=== PATIENT | female | born 1995 | race Hispanic/Latino ===

== ENCOUNTER 2017-03-25 07:10 | Emergency (ER) | payer SELFPAY ==
[2017-03-25 07:27] VITALS: BP 112/64; PULSE 83; RESP 16; TEMP 97.7; O2SAT 100
--- NOTE | 2017-03-25 07:33 | ED PDOC ---
Arrival/HPI - General Time Seen by Provider: 03/25/17 07:13 Historian: Patient, EMS - History of Present Illness Narrative History of Present Illness (Text): 03/25/17 07:21 Alina Guy is a 22 year old female, with no relevant past medical history, who was brought in by EMS after finding her inside a car stationed between the road and sidewalk. Patient reports that during the night she was out with her boyfriend and friend, she then drove home and remembers driving back to her boyfriends house to drop of keys when she suddenly felt exhaustion and began dozing off. Patient notes she was then shocked when EMS found her stationed illegally and does not recall how she got there. She reports not drinking or using drugs before driving. Patient also denies chest pain, shortness of breath , headache, nausea, vomiting, diarrhea, fever, chills, cough, visual changes, tongue biting, head injury, or other complaints PMD: Dr. Aureliano Campos Time/Duration: Prior to Arrival Symptom Onset: Sudden Symptom Course: Unchanged Activities at Onset: Light Modifying Factors (Text): None Context: Materials Handling Coordinator Associated Symptoms (Text): None Past Medical History - Provider Review Nursing Documentation Reviewed: Yes Family/Social History - Physician Review Nursing Documentation Reviewed: Yes Family/Social History: Unknown Family HX Allergies/Home Meds Allergies/Adverse Reactions: Allergies No Known Allergies Allergy (Verified 03/25/17 07:28) Home Medications: Home Meds Medication Instructions Recorded Confirmed No Known Home Med 03/25/17 03/25/17 Review of Systems - Review of Systems Constitutional: Fatigue. absent: Fevers Eyes: absent: Vision Changes ENT: Normal Respiratory: absent: SOB Cardiovascular: absent: Chest Pain Gastrointestinal: absent: Abdominal Pain, Diarrhea, Nausea, Vomiting Genitourinary Female: Normal Musculoskeletal: absent: Back Pain, Neck Pain Skin: Normal Neurological: absent: Headache, Dizziness Endocrine: Normal Hemo/Lymphatic: Normal Psychiatric: Normal Physical Exam Vital Signs Reviewed: Yes Vital Signs Temp Pulse Resp BP Pulse Ox 03/25/17 07:24 97.7 F 83 16 112/64 100 Temperature: Afebrile Blood Pressure: Normal Pulse: Regular Respiratory Rate: Normal Appearance: Positive for: Well-Appearing, Non-Toxic, Comfortable Pain Distress: None Mental Status: Positive for: Alert and Oriented X 3 - Systems Exam Head: Present: Atraumatic, Normocephalic Pupils: Present: PERRL Extroacular Muscles: Present: EOMI Conjunctiva: Present: Normal Mouth: Present: Moist Mucous Membranes Neck: Present: Normal Range of Motion Respiratory/Chest: Present: Clear to Auscultation, Good Air Exchange. No: Respiratory Distress, Accessory Muscle Use Cardiovascular: Present: Regular Rate and Rhythm, Normal S1, S2. No: Murmurs Abdomen: Present: Normal Bowel Sounds. No: Tenderness, Distention, Peritoneal Signs Upper Extremity: Present: Normal Inspection. No: Cyanosis, Edema Lower Extremity: Present: Normal Inspection. No: Edema Neurological: Present: GCS=15, CN II-XII Intact, Speech Normal Skin: Present: Warm, Dry, Normal Color. No: Rashes Psychiatric: Present: Alert, Oriented x 3, Normal Insight, Normal Concentration Medical Decision Making ED Course and Treatment: 03/25/17 07:21 Impression: 22 year old female with exhaustion found in car by EMS. Differential Diagnosis included but are not limited to: Tiredness Plan: -- EKG -- Reassess and disposition Progress Notes: EKG: Ordered, reviewed, and independently interpreted the EKG. Rate : 73 BPM Rhythm : NSR Interpretation : No ST-segment elevations or depressions, no T-wave inversions, normal intervals. Comparison : No previous EKG for comparison. Prior to discharge family arrived. Patient feels comfortable going home with parents with PMD f/u - EKG Interpretation Interpreted by ED Physician: Yes Type: 12 lead EKG - PA / STEEL FABRICATOR / Resident Statement MD/DO has reviewed & agrees with the documentation as recorded. MD/DO has examined the patient and agrees with the treatment plan. - Scribe Statement The provider has reviewed the documentation as recorded by the Scribe 03/25/2017 Natalie Shah Provider Scribe Attestation: All medical record entries made by the Scribe were at my direction and personally dictated by me. I have reviewed the chart and agree that the record accurately reflects my personal performance of the history, physical exam, medical decision making, and the department course for this patient. I have also personally directed, reviewed, and agree with the discharge instructions and disposition. Disposition/Present on Arrival - Present on Arrival Any Indicators Present on Arrival: No - Disposition Have Diagnosis and Disposition been Completed?: Yes Diagnosis: Poor sleep pattern Disposition: HOME/ ROUTINE Disposition Time: 08:10 Patient Plan: Discharge Condition: IMPROVED Additional Instructions: Ms Coleman, thank you for letting us take care of you today. Your provider was Dr. Nash. You were treated for Falling Asleep. The emergency medical care you received today was directed at your acute symptoms. If you were prescribed any medication, please fill it and take as directed. It may take several days for your symptoms to resolve. Return to the Emergency Department if your symptoms worsen, do not improve, or if you have any other problems. Please contact your doctor or call one of the physicians/clinics you have been referred to that are listed on the Patient Visit Information form that is included in your discharge packet. Bring any paperwork you were given at discharge with you along with any medications you are taking to your follow up visit. Our treatment cannot replace ongoing medical care by a primary care provider (PCP) outside of the emergency department. Thank you for allowing the [facility] team to be part of your care today. If you had an X-Ray or CT scan: A Radiologist will review the ED reading if any change in treatment is needed we will contact you. If you had a blood, urine, or wound culture: It will take several days for the results, if any change in treatment is needed we will contact you. If you had an STI test: It will take 48 hours for the results. Please call after 1 week if you have not heard back. Referrals: Brainliker[facility] Kendall, [Primary Care Provider] - Follow up with primary Forms: [facility] [employer] (Faro[employer])
--- NOTE | 2017-03-25 12:42 | CARD ---
APPROVED REPORT EKG Measurement Heart [id number] ID [id number] <Conclusion> Normal sinus rhythm Possible Left atrial enlargement Borderline ECG
== END 2017-03-25 08:11 | disposition home or self-care (01) ==
LOC: ED 07:10
DX: G47.8 Other sleep disorders (principal)